=== PATIENT | female | born 1965 | race African-American/Black ===

== ENCOUNTER 2021-02-18 13:09 | Inpatient (IN) | payer OTHER ==
[~2021-02-18] VITALS: Ht 170.2 cm; Wt 108.2 kg
[2021-02-18] MEDS ORDERED: FAMOTIDINE 20 MG/2 ML VIAL IV STA (13:44)
[2021-02-18] MEDS ORDERED: ONDANSETRON HCL INJ 2MG/ML 2ML 2 MG/ML VIAL IV STA ×2 (13:44→15:34)
[2021-02-18] MEDS ORDERED: SODIUM CHLORIDE 0.9% 1000ML 1,000 ML IV SCH ×2 (13:45→17:00)
[2021-02-18] MEDS ORDERED: KETOROLAC TROMETHAMINE 30 MG/ML VIAL IV STA (13:56)
[2021-02-18] MEDS ORDERED: SODIUM CHLORIDE 0.9% 50ML 50 ML ONE (14:04)
[2021-02-18] MEDS ORDERED: IOPAMIDOL 370 MG/ML 200 ML INFUS..BTL INJ ONE (14:05)
[2021-02-18] MEDS ORDERED: FAMOTIDINE 20 MG/2 ML VIAL IV ONE (14:06)
[2021-02-18] MEDS ORDERED: ONDANSETRON HCL INJ 2MG/ML 2ML 2 MG/ML VIAL ONE ×2 (14:06→15:46)
[2021-02-18] MEDS ORDERED: KETOROLAC TROMETHAMINE 30 MG/ML VIAL ONE (14:06)
[2021-02-18] MEDS ORDERED: SODIUM CHLORIDE 0.9% 1000ML 1,000 ML ONE (14:06)
[2021-02-18] MEDS ORDERED: ACETAMINOPHEN 325 MG TAB PO ONE (14:15)
[2021-02-18] MEDS ORDERED: ACETAMINOPHEN 325 MG TAB ONE (14:27)
[2021-02-18] MEDS ORDERED: MORPHINE SULFATE INJ 4 MG/ML INJ 1ML IV STA (15:34)
[2021-02-18] MEDS ORDERED: MORPHINE SULFATE INJ 4 MG/ML INJ 1ML ONE (15:47)
[2021-02-18] MEDS: SODIUM CHLORIDE 0.9% 1000ML 1,000 ML IV SCH ×2 (16:45→21:10)
[2021-02-18] MEDS ORDERED: DEXTROSE 50% SYRINGE 50 ML IV PRN (16:45)
[2021-02-18] MEDS ORDERED: PROMETHAZINE HCL (IM) 25 MG/ML VIAL IM PRN (16:45)
[2021-02-18 18:19] LABS: CREATINE KINASE MB 0.9 ng/mL (0-5.0)
[2021-02-18 18:24] VITALS: BP 114/66
[2021-02-18] MEDS: HYDROMORPHONE 1MG/1ML INJ IV PRN (18:58)
[2021-02-18 20:00] VITALS: BP 114/66
[2021-02-18 21:00] VITALS: BP 114/66
[2021-02-18] MEDS ORDERED: JANUMET 50-1,01 EACH PO (22:29)
[2021-02-18] MEDS ORDERED: AMLODIPINE BESYL5 MG PO (22:29)
[2021-02-18] MEDS ORDERED: CRESTOR10 MG PO (22:29)
[2021-02-18] MEDS ORDERED: HYDROCHLOROTHIA25 MG PO (22:29)
[2021-02-18] MEDS ORDERED: GLIMEPIRIDE2 MG PO (22:29)
[2021-02-18] MEDS ORDERED: COREG12.5 MG PO (22:29)
[2021-02-18] MEDS ORDERED: ALEVE220 M1 PO (22:29)
[2021-02-18] MEDS ORDERED: BENICAR20 MG PO (22:29)
[2021-02-18] MEDS ORDERED: DICLOFENAC SODI75 MG PO (22:29)
[2021-02-18] MEDS ORDERED: ZOFRAN4 MG PO (22:29)
[2021-02-19] VITALS (8 sets, daily range): BP systolic 107–135; BP diastolic 51–73
[2021-02-19 07:21] LABS: BASOPHILS % 0.2 % (0.0-1.0); EOSINOPHILS % 0.1 % (0.0-6.0); HEMATOCRIT 27.9 % (34.2-44.1); HEMOGLOBIN 8.5 g/dL (12.0-16.0); LYMPHOCYTES # (AUTO) 1.3 (1.0-3.2); LYMPHOCYTES % 9.3 % (18.0-39.1); MEAN CORPUSCULAR HEMOGLOBIN 28.1 pg (28-32); MEAN CORPUSCULAR HGB CONC 30.5 g/dL (31-35); MEAN CORPUSCULAR VOLUME 92.4 fL (81-99); MONOCYTES # (AUTO) 1.1 (0.2-0.8); MONOCYTES % 8.2 % (4.4-11.3); NEUTROPHILS # (AUTO) 11.1 (2.1-6.9); NEUTROPHILS % 81.5 % (38.7-80.0); PLATELET COUNT 182 x10e3/uL (140-360); RED BLOOD COUNT 3.02 x10e6/uL (3.6-5.1); RED CELL DISTRIBUTION WIDTH 13.7 % (11.7-14.4)
[2021-02-19 07:24] LABS: ANION GAP 20.4 mmol/L (8-16); CALCIUM 8.4 mg/dL (8.4-10.2); CREATININE, SERUM 2.26 mg/dL (0.57-1.11); POTASSIUM 4.4 mmol/L (3.5-5.1)
[2021-02-19] MEDS: HYDROMORPHONE 1MG/1ML INJ IV PRN ×3 (07:50→16:14)
[2021-02-19] MEDS ORDERED: FAMOTIDINE 20 MG/2 ML VIAL IV SCH (09:00)
[2021-02-19] MEDS ORDERED: ENOXAPARIN SOD INJ 40 MG/0.4 ML SYR SC SCH (09:00)
[2021-02-19 10:31] LABS: BAND NEUTROPHILS % (MANUAL) 6 %; LYMPHOCYTES % (MANUAL) 12 % (19-48); MONOCYTES % (MANUAL) 6 % (3.4-9.0); NEUTROPHILS % (MANUAL) 76 % (40-74)
[2021-02-19 10:32] LABS: PLATELET ESTIMATE ADEQUATE; PLATELET MORPHOLOGY COMMENT NORMAL; RBC MORPHOLOGY COMMENT NORMAL
[2021-02-19] MEDS: SODIUM CHLORIDE 0.9% 1000ML 1,000 ML IV SCH (12:08)
[2021-02-19] MEDS ORDERED: DEXTROSE 50% SYRINGE 50 ML IV PRN (12:15)
[2021-02-19 12:26] LABS: % IRON SATURATION 9 % (15-50); IRON 23 ug/dL (50-170); TOTAL IRON BINDING CAPACITY 253 ug/dL (261-478); TRANSFERRIN 181 mg/dL (180-382)
[2021-02-19] MEDS ORDERED: PNEUMOCOCCAL VACCINE POLYVALENT 23 MCG/0.5 ML VIAL IM SCH (14:00)
[2021-02-19] MEDS: INSULIN LISPRO 100 UNIT/1 ML 3ML VIAL SQ SCH ×2 (16:14→21:00)
[2021-02-19] MEDS: LACTATED RINGER'S 1,000 ML INJ SCH (16:14)
[2021-02-19 16:24] LABS: CHOL/HDL RATIO 3.1 (3.0-3.6)
[2021-02-19 17:36] LABS: CLARITY,URINE SL CLOUDY (CLEAR); COLOR,URINE BROWN (YELLOW); KETONES,URINE NEGATIVE (NEGATIVE); LEUKOCYTE ESTERASE ,URINE TRACE (NEGATIVE); NITRITE,URINE NEGATIVE (NEGATIVE); PROTEIN,URINE DIPSTICK 2+ (NEGATIVE); URINE UROBILINOGEN 2 mg/dL (0.2 - 1)
[2021-02-19 17:50] LABS: AMORPHOUS SEDIMENT,URINE MANY (FEW); BACTERIA,URINE MANY /HPF
[2021-02-19 17:53] LABS: CREATININE,URINE RANDOM 99.45 mg/dL (47-110)
[2021-02-20] VITALS (8 sets, daily range): BP systolic 122–152; BP diastolic 69–81
[2021-02-20] MEDS: ONDANSETRON HCL INJ 2MG/ML 2ML 2 MG/ML VIAL IV PRN ×2 (01:02→23:12)
[2021-02-20] MEDS: HYDROMORPHONE 1MG/1ML INJ IV PRN ×5 (01:07→23:12)
[2021-02-20] MEDS: ACETAMINOPHEN 1000 MG/100 ML IV PRN ×2 (02:19→23:12)
[2021-02-20] MEDS: LACTATED RINGER'S 1,000 ML INJ SCH ×2 (02:26→09:34)
[2021-02-20 05:55] LABS: BASOPHILS % 0.3 % (0.0-1.0); EOSINOPHILS % 0.4 % (0.0-6.0); HEMATOCRIT 29.4 % (34.2-44.1); LYMPHOCYTES # (AUTO) 1.4 (1.0-3.2); LYMPHOCYTES % 13.1 % (18.0-39.1); MEAN CORPUSCULAR HEMOGLOBIN 28.8 pg (28-32); MEAN CORPUSCULAR HGB CONC 30.6 g/dL (31-35); MEAN CORPUSCULAR VOLUME 94.2 fL (81-99); MONOCYTES # (AUTO) 1.1 (0.2-0.8); MONOCYTES % 9.9 % (4.4-11.3); NEUTROPHILS # (AUTO) 8.3 (2.1-6.9); NEUTROPHILS % 75.1 % (38.7-80.0); PLATELET COUNT 186 x10e3/uL (140-360); RED BLOOD COUNT 3.12 x10e6/uL (3.6-5.1); RED CELL DISTRIBUTION WIDTH 13.8 % (11.7-14.4)
[2021-02-20 06:27] LABS: ANION GAP 18.3 mmol/L (8-16); BILIRUBIN,DIRECT 1.1 mg/dL (0.0-0.5); CALCIUM 8.7 mg/dL (8.4-10.2); CREATININE, SERUM 1.81 mg/dL (0.57-1.11); POTASSIUM 4.3 mmol/L (3.5-5.1)
[2021-02-20] MEDS ORDERED: ENOXAPARIN SOD INJ 40 MG/0.4 ML SYR SC SCH (09:00)
[2021-02-20] MEDS: IRON SUCROSE 100 MG in SODIUM CHLORIDE 0.9% 100 ML 100 ML IV SCH (09:00)
[2021-02-20] MEDS: ENOXAPARIN 30 MG/0.3 ML SYR SC SCH (09:35)
[2021-02-20] MEDS: FAMOTIDINE 20 MG/2 ML VIAL IV SCH ×2 (09:35→10:42)
[2021-02-20] MEDS: INSULIN LISPRO 100 UNIT/1 ML 3ML VIAL SQ SCH ×4 (10:43→20:53)
[2021-02-20] MEDS: SODIUM CHLORIDE 0.45% 1,000 ML IV SCH ×2 (16:46→20:15)
[2021-02-21] VITALS (8 sets, daily range): BP systolic 128–161; BP diastolic 64–98
[2021-02-21] MEDS: SODIUM CHLORIDE 0.45% 1,000 ML IV SCH ×3 (05:14→19:49)
[2021-02-21 05:31] LABS: BASOPHILS % 0.2 % (0.0-1.0); EOSINOPHILS % 0.1 % (0.0-6.0); HEMOGLOBIN 9.5 g/dL (12.0-16.0); LYMPHOCYTES # (AUTO) 1.5 (1.0-3.2); LYMPHOCYTES % 13.4 % (18.0-39.1); MEAN CORPUSCULAR HEMOGLOBIN 28.4 pg (28-32); MEAN CORPUSCULAR HGB CONC 29.7 g/dL (31-35); MEAN CORPUSCULAR VOLUME 95.5 fL (81-99); MONOCYTES # (AUTO) 1.3 (0.2-0.8); MONOCYTES % 11.1 % (4.4-11.3); NEUTROPHILS # (AUTO) 8.3 (2.1-6.9); NEUTROPHILS % 73.7 % (38.7-80.0); PLATELET COUNT 188 x10e3/uL (140-360); RED BLOOD COUNT 3.35 x10e6/uL (3.6-5.1); RED CELL DISTRIBUTION WIDTH 13.9 % (11.7-14.4)
[2021-02-21 06:00] LABS: ALBUMIN 3.2 g/dL (3.5-5.0); BILIRUBIN,DIRECT 1.4 mg/dL (0.0-0.5)
[2021-02-21 06:04] LABS: ANION GAP 23.2 mmol/L (8-16); CALCIUM 9.4 mg/dL (8.4-10.2); CREATININE, SERUM 1.54 mg/dL (0.57-1.11); POTASSIUM 4.2 mmol/L (3.5-5.1)
[2021-02-21] MEDS: ENOXAPARIN 30 MG/0.3 ML SYR SC SCH (10:11)
[2021-02-21] MEDS: IRON SUCROSE 100 MG in SODIUM CHLORIDE 0.9% 100 ML 100 ML IV SCH (10:12)
[2021-02-21] MEDS: FAMOTIDINE 20 MG/2 ML VIAL IV SCH (10:12)
[2021-02-21] MEDS: HYDROMORPHONE 1MG/1ML INJ IV PRN ×3 (10:15→19:56)
[2021-02-21] MEDS: INSULIN LISPRO 100 UNIT/1 ML 3ML VIAL SQ SCH ×4 (10:15→20:47)
[2021-02-22] VITALS (8 sets, daily range): BP systolic 132–166; BP diastolic 72–88
[2021-02-22] MEDS: HYDROMORPHONE 1MG/1ML INJ IV PRN ×4 (00:16→23:04)
[2021-02-22] MEDS: SODIUM CHLORIDE 0.45% 1,000 ML IV SCH ×3 (01:13→23:03)
[2021-02-22 05:09] LABS: BASOPHILS % 0.3 % (0.0-1.0); EOSINOPHILS # (AUTO) 0.1 (0.0-0.4); EOSINOPHILS % 1.1 % (0.0-6.0); HEMATOCRIT 28.3 % (34.2-44.1); HEMOGLOBIN 8.7 g/dL (12.0-16.0); LYMPHOCYTES # (AUTO) 1.9 (1.0-3.2); LYMPHOCYTES % 18.3 % (18.0-39.1); MEAN CORPUSCULAR HEMOGLOBIN 28.5 pg (28-32); MEAN CORPUSCULAR HGB CONC 30.7 g/dL (31-35); MEAN CORPUSCULAR VOLUME 92.8 fL (81-99); MONOCYTES # (AUTO) 1.3 (0.2-0.8); MONOCYTES % 12.2 % (4.4-11.3); NEUTROPHILS # (AUTO) 6.9 (2.1-6.9); NEUTROPHILS % 67.4 % (38.7-80.0); PLATELET COUNT 200 x10e3/uL (140-360); RED BLOOD COUNT 3.05 x10e6/uL (3.6-5.1); RED CELL DISTRIBUTION WIDTH 14.2 % (11.7-14.4)
[2021-02-22 05:48] LABS: ALBUMIN 2.9 g/dL (3.5-5.0); ANION GAP 14.7 mmol/L (8-16); BILIRUBIN,DIRECT 2.1 mg/dL (0.0-0.5); CREATININE, SERUM 1.32 mg/dL (0.57-1.11); POTASSIUM 3.7 mmol/L (3.5-5.1)
[2021-02-22] MEDS: ENOXAPARIN 30 MG/0.3 ML SYR SC SCH (09:15)
[2021-02-22] MEDS: IRON SUCROSE 100 MG in SODIUM CHLORIDE 0.9% 100 ML 100 ML IV SCH (09:23)
[2021-02-22] MEDS: INSULIN LISPRO 100 UNIT/1 ML 3ML VIAL SQ SCH ×4 (09:30→20:52)
[2021-02-22] MEDS: ONDANSETRON HCL INJ 2MG/ML 2ML 2 MG/ML VIAL IV PRN (23:04)
[2021-02-23] VITALS (8 sets, daily range): BP systolic 143–182; BP diastolic 77–95
[2021-02-23] MEDS: ONDANSETRON HCL INJ 2MG/ML 2ML 2 MG/ML VIAL IV PRN (05:32)
[2021-02-23] MEDS: HYDROMORPHONE 1MG/1ML INJ IV PRN (05:32)
[2021-02-23 05:46] LABS: ALBUMIN 2.8 g/dL (3.5-5.0); ALBUMIN/GLOBULIN RATIO 0.7 (0.8-2.0); ANION GAP 15.5 mmol/L (8-16); CALCIUM 8.9 mg/dL (8.4-10.2); CREATININE, SERUM 1.11 mg/dL (0.57-1.11); POTASSIUM 3.5 mmol/L (3.5-5.1)
[2021-02-23] MEDS: ENOXAPARIN 30 MG/0.3 ML SYR SC SCH (09:00)
[2021-02-23] MEDS: INSULIN LISPRO 100 UNIT/1 ML 3ML VIAL SQ SCH ×5 (09:00→21:00)
[2021-02-23] MEDS: SODIUM CHLORIDE 0.45% 1,000 ML IV SCH ×3 (09:00→22:53)
[2021-02-23] MEDS: HYDROCODONE/APAP 5MG-325MG TAB PO PRN (12:33)
[2021-02-23] MEDS: CARVEDILOL 3.125 MG TAB PO SCH ×2 (13:23→21:12)
[2021-02-24] VITALS (8 sets, daily range): BP systolic 146–174; BP diastolic 67–97
[2021-02-24] MEDS: ONDANSETRON HCL INJ 2MG/ML 2ML 2 MG/ML VIAL IV PRN (00:56)
[2021-02-24] MEDS: HYDROMORPHONE 1MG/1ML INJ IV PRN (00:57)
[2021-02-24 05:22] LABS: BASOPHILS % 0.3 % (0.0-1.0); EOSINOPHILS # (AUTO) 0.1 (0.0-0.4); EOSINOPHILS % 1.8 % (0.0-6.0); HEMATOCRIT 26.9 % (34.2-44.1); HEMOGLOBIN 8.4 g/dL (12.0-16.0); LYMPHOCYTES # (AUTO) 1.8 (1.0-3.2); LYMPHOCYTES % 22.6 % (18.0-39.1); MEAN CORPUSCULAR HEMOGLOBIN 28.6 pg (28-32); MEAN CORPUSCULAR HGB CONC 31.2 g/dL (31-35); MEAN CORPUSCULAR VOLUME 91.5 fL (81-99); MONOCYTES # (AUTO) 0.7 (0.2-0.8); MONOCYTES % 9.1 % (4.4-11.3); NEUTROPHILS % 64.7 % (38.7-80.0); PLATELET COUNT 205 x10e3/uL (140-360); RED BLOOD COUNT 2.94 x10e6/uL (3.6-5.1); RED CELL DISTRIBUTION WIDTH 13.9 % (11.7-14.4)
[2021-02-24] MEDS: PANTOPRAZOLE SOD 40 MG TABEC PO SCH (05:42)
[2021-02-24 05:47] LABS: ANION GAP 15.4 mmol/L (8-16); CALCIUM 8.7 mg/dL (8.4-10.2); CREATININE, SERUM 0.9 mg/dL (0.57-1.11); POTASSIUM 3.4 mmol/L (3.5-5.1)
[2021-02-24] MEDS: HYDROCODONE/APAP 5MG-325MG TAB PO PRN ×3 (05:47→22:33)
[2021-02-24] MEDS: CLONIDINE HCL 0.1 MG TAB PO PRN ×2 (06:27→21:27)
[2021-02-24 06:43] LABS: ALBUMIN 2.6 g/dL (3.5-5.0)
[2021-02-24] MEDS: CARVEDILOL 3.125 MG TAB PO SCH ×2 (08:25→21:27)
[2021-02-24] MEDS: ENOXAPARIN 30 MG/0.3 ML SYR SC SCH (08:25)
[2021-02-24] MEDS: INSULIN LISPRO 100 UNIT/1 ML 3ML VIAL SQ SCH ×5 (08:41→21:00)
[2021-02-24] MEDS ORDERED: POTASSIUM CHLORIDE 20 MEQ TAB CR PO ONE ×2 (09:20→12:30)
[2021-02-24] MEDS ORDERED: GADOBENATE DIMEGLUMINE 1 ML IV ONE (10:15)
[2021-02-24] MEDS ORDERED: SODIUM CHLORIDE 0.9% 50ML 50 ML ONE (10:15)
[2021-02-24] MEDS: SODIUM CHLORIDE 0.45% 1,000 ML IV SCH (15:48)
[2021-02-24] MEDS ORDERED: PIPERACILLIN/TAZOBACTAM 3.375 GM in SODIUM CHLORIDE 0.9% 50ML 50 ML IV SCH (18:00)
[2021-02-24] MEDS: MEROPENEM 500 MG in SODIUM CHLORIDE 0.9% 50ML 50 ML IV SCH ×2 (22:36→23:55)
[2021-02-25] VITALS (7 sets, daily range): BP systolic 158–183; BP diastolic 82–103
[2021-02-25] MEDS: SODIUM CHLORIDE 0.45% 1,000 ML IV SCH ×2 (00:15→05:25)
[2021-02-25] MEDS: MEROPENEM 500 MG in SODIUM CHLORIDE 0.9% 50ML 50 ML IV SCH ×4 (05:11→23:56)
[2021-02-25] MEDS: PANTOPRAZOLE SOD 40 MG TABEC PO SCH (05:11)
[2021-02-25] MEDS: HYDROMORPHONE 1MG/1ML INJ IV PRN ×3 (06:14→23:56)
[2021-02-25] MEDS: ONDANSETRON HCL INJ 2MG/ML 2ML 2 MG/ML VIAL IV PRN ×3 (06:14→23:56)
[2021-02-25 06:23] LABS: BASOPHILS % 0.2 % (0.0-1.0); EOSINOPHILS # (AUTO) 0.2 (0.0-0.4); EOSINOPHILS % 2.4 % (0.0-6.0); HEMATOCRIT 28.9 % (34.2-44.1); LYMPHOCYTES # (AUTO) 2.1 (1.0-3.2); LYMPHOCYTES % 25.5 % (18.0-39.1); MEAN CORPUSCULAR HEMOGLOBIN 28.6 pg (28-32); MEAN CORPUSCULAR HGB CONC 31.1 g/dL (31-35); MEAN CORPUSCULAR VOLUME 91.7 fL (81-99); MONOCYTES # (AUTO) 0.7 (0.2-0.8); NEUTROPHILS # (AUTO) 5.1 (2.1-6.9); NEUTROPHILS % 61.6 % (38.7-80.0); PLATELET COUNT 234 x10e3/uL (140-360); RED BLOOD COUNT 3.15 x10e6/uL (3.6-5.1); RED CELL DISTRIBUTION WIDTH 14.3 % (11.7-14.4)
[2021-02-25 06:56] LABS: PROTHROMBIN TIME 13.4 seconds (11.9-14.5)
[2021-02-25 06:57] LABS: PARTIAL THROMBOPLASTIN TIME 40.6 seconds (23.8-35.5)
[2021-02-25 07:03] LABS: ANION GAP 14.7 mmol/L (8-16); BILIRUBIN,DIRECT 1.3 mg/dL (0.0-0.5); CALCIUM 8.9 mg/dL (8.4-10.2); CREATININE, SERUM 0.94 mg/dL (0.57-1.11); MAGNESIUM 1.7 MG/DL (1.3-2.1); POTASSIUM 3.7 mmol/L (3.5-5.1)
[2021-02-25] MEDS: INSULIN LISPRO 100 UNIT/1 ML 3ML VIAL SQ SCH ×4 (07:30→20:25)
[2021-02-25] MEDS: CARVEDILOL 3.125 MG TAB PO SCH ×2 (10:26→20:26)
[2021-02-25 10:38] LABS: EOSINOPHILS % (MANUAL) 2 % (0-7); LYMPHOCYTES % (MANUAL) 19 % (19-48); METAMYELOCYTES % (MANUAL) 1 % (0-0); MONOCYTES % (MANUAL) 5 % (3.4-9.0); NEUTROPHILS % (MANUAL) 73 % (40-74)
[2021-02-25 10:39] LABS: PLATELET ESTIMATE ADEQUATE; PLATELET MORPHOLOGY COMMENT NORMAL; RBC MORPHOLOGY COMMENT NORMAL
[2021-02-25] MEDS ORDERED: BUPIVACAINE 0.25% 30ML SDV ONE (11:07)
[2021-02-25] MEDS ORDERED: FENTANYL CITRATE/PF 100MCG/2 ML INJ ONE (12:46)
[2021-02-25] MEDS ORDERED: ONDANSETRON HCL INJ 2MG/ML 2ML 2 MG/ML VIAL ONE (12:46)
[2021-02-25] MEDS: SODIUM CHLORIDE 0.9% 1000ML 1,000 ML IV SCH (15:44)
[2021-02-25] MEDS: CLONIDINE HCL 0.1 MG TAB PO PRN (16:05)
[2021-02-25] MEDS: HYDROCODONE/APAP 5MG-325MG TAB PO PRN (20:26)
[2021-02-26] VITALS (8 sets, daily range): BP systolic 143–185; BP diastolic 67–85
[2021-02-26 05:14] LABS: BASOPHILS # (AUTO) 0.1 (0.0-0.1); BASOPHILS % 0.4 % (0.0-1.0); EOSINOPHILS % 0.2 % (0.0-6.0); HEMATOCRIT 26.4 % (34.2-44.1); HEMOGLOBIN 8.3 g/dL (12.0-16.0); LYMPHOCYTES # (AUTO) 2.3 (1.0-3.2); LYMPHOCYTES % 18.4 % (18.0-39.1); MEAN CORPUSCULAR HEMOGLOBIN 28.6 pg (28-32); MEAN CORPUSCULAR HGB CONC 31.4 g/dL (31-35); MONOCYTES % 8.2 % (4.4-11.3); NEUTROPHILS # (AUTO) 8.8 (2.1-6.9); NEUTROPHILS % 71.4 % (38.7-80.0); PLATELET COUNT 272 x10e3/uL (140-360); RED CELL DISTRIBUTION WIDTH 14.5 % (11.7-14.4)
[2021-02-26 05:37] LABS: ALBUMIN 1.7 g/dL (3.5-5.0); ALBUMIN/GLOBULIN RATIO 0.4 (0.8-2.0); ANION GAP 17.9 mmol/L (8-16); CALCIUM 8.4 mg/dL (8.4-10.2); CREATININE, SERUM 1.33 mg/dL (0.57-1.11); POTASSIUM 3.9 mmol/L (3.5-5.1)
[2021-02-26] MEDS: SODIUM CHLORIDE 0.9% 1000ML 1,000 ML IV SCH ×3 (05:37→18:09)
[2021-02-26] MEDS: PANTOPRAZOLE SOD 40 MG TABEC PO SCH (05:37)
[2021-02-26] MEDS: MEROPENEM 500 MG in SODIUM CHLORIDE 0.9% 50ML 50 ML IV SCH ×3 (05:37→18:09)
[2021-02-26] MEDS: HYDROCODONE/APAP 5MG-325MG TAB PO PRN ×3 (05:47→21:46)
[2021-02-26 08:34] LABS: BAND NEUTROPHILS % (MANUAL) 1 %; LYMPHOCYTES % (MANUAL) 11 % (19-48); METAMYELOCYTES % (MANUAL) 1 % (0-0); MONOCYTES % (MANUAL) 4 % (3.4-9.0); NEUTROPHILS % (MANUAL) 83 % (40-74); PLATELET ESTIMATE ADEQUATE; PLATELET MORPHOLOGY COMMENT NORMAL; POLYCHROMASIA FEW; RBC MORPHOLOGY COMMENT NORMAL
[2021-02-26] MEDS: CARVEDILOL 3.125 MG TAB PO SCH ×2 (08:37→21:45)
[2021-02-26] MEDS: INSULIN LISPRO 100 UNIT/1 ML 3ML VIAL SQ SCH ×4 (09:00→21:48)
[2021-02-26 14:13] LABS: CLARITY,URINE CLOUDY (CLEAR); COLOR,URINE YELLOW (YELLOW); KETONES,URINE TRACE (NEGATIVE); LEUKOCYTE ESTERASE ,URINE NEGATIVE (NEGATIVE); NITRITE,URINE NEGATIVE (NEGATIVE); PROTEIN,URINE DIPSTICK 2+ (NEGATIVE); URINE UROBILINOGEN 1 mg/dL (0.2 - 1)
[2021-02-26 14:27] LABS: AMORPHOUS SEDIMENT,URINE MODERATE (FEW); BACTERIA,URINE MODERATE /HPF; EPITHELIAL CELLS,URINE FEW /LPF
[2021-02-27] VITALS (8 sets, daily range): BP systolic 139–184; BP diastolic 77–95
[2021-02-27] MEDS: MEROPENEM 500 MG in SODIUM CHLORIDE 0.9% 50ML 50 ML IV SCH ×5 (00:11→23:19)
[2021-02-27] MEDS: ONDANSETRON HCL INJ 2MG/ML 2ML 2 MG/ML VIAL IV PRN (00:49)
[2021-02-27] MEDS: HYDROMORPHONE 1MG/1ML INJ IV PRN ×2 (00:49→13:46)
[2021-02-27] MEDS: SODIUM CHLORIDE 0.9% 1000ML 1,000 ML IV SCH ×2 (04:07→14:15)
[2021-02-27] MEDS: PANTOPRAZOLE SOD 40 MG TABEC PO SCH (05:20)
[2021-02-27 06:44] LABS: BASOPHILS % 0.2 % (0.0-1.0); EOSINOPHILS # (AUTO) 0.2 (0.0-0.4); EOSINOPHILS % 1.1 % (0.0-6.0); HEMATOCRIT 25.4 % (34.2-44.1); LYMPHOCYTES % 21.7 % (18.0-39.1); MEAN CORPUSCULAR HEMOGLOBIN 29.1 pg (28-32); MEAN CORPUSCULAR HGB CONC 31.5 g/dL (31-35); MEAN CORPUSCULAR VOLUME 92.4 fL (81-99); MONOCYTES # (AUTO) 1.1 (0.2-0.8); MONOCYTES % 8.3 % (4.4-11.3); NEUTROPHILS # (AUTO) 9.2 (2.1-6.9); NEUTROPHILS % 67.3 % (38.7-80.0); PLATELET COUNT 317 x10e3/uL (140-360); RED BLOOD COUNT 2.75 x10e6/uL (3.6-5.1); RED CELL DISTRIBUTION WIDTH 15.1 % (11.7-14.4)
[2021-02-27 07:08] LABS: ALBUMIN 1.8 g/dL (3.5-5.0); ALBUMIN/GLOBULIN RATIO 0.4 (0.8-2.0); ANION GAP 14.7 mmol/L (8-16); CALCIUM 8.1 mg/dL (8.4-10.2); CREATININE, SERUM 1.17 mg/dL (0.57-1.11); POTASSIUM 3.7 mmol/L (3.5-5.1)
[2021-02-27] MEDS: INSULIN LISPRO 100 UNIT/1 ML 3ML VIAL SQ SCH ×4 (08:30→22:13)
[2021-02-27] MEDS: CARVEDILOL 3.125 MG TAB PO SCH ×2 (09:20→22:12)
[2021-02-27] MEDS ORDERED: LACTULOSE SYRUP 20 GM/30 ML UDC PO NR (11:45)
[2021-02-27] MEDS: CLONIDINE HCL 0.1 MG TAB PO PRN ×2 (13:46→18:19)
[2021-02-27] MEDS: DOCUSATE SODIUM 100 MG CAP PO SCH (18:18)
[2021-02-27] MEDS: HYDRALAZINE HCL 25 MG TAB PO SCH (18:18)
[2021-02-27] MEDS: HYDROCODONE/APAP 5MG-325MG TAB PO PRN (23:20)
[2021-02-28] VITALS (7 sets, daily range): BP systolic 146–173; BP diastolic 72–94
[2021-02-28] MEDS: SODIUM CHLORIDE 0.9% 1000ML 1,000 ML IV SCH (00:15)
[2021-02-28] MEDS: HYDROMORPHONE 1MG/1ML INJ IV PRN (03:00)
[2021-02-28] MEDS: ONDANSETRON HCL INJ 2MG/ML 2ML 2 MG/ML VIAL IV PRN (03:00)
[2021-02-28] MEDS: PANTOPRAZOLE SOD 40 MG TABEC PO SCH (05:29)
[2021-02-28] MEDS: MEROPENEM 500 MG in SODIUM CHLORIDE 0.9% 50ML 50 ML IV SCH ×3 (05:29→18:31)
[2021-02-28 06:27] LABS: BASOPHILS % 0.3 % (0.0-1.0); EOSINOPHILS # (AUTO) 0.2 (0.0-0.4); EOSINOPHILS % 1.6 % (0.0-6.0); HEMATOCRIT 24.7 % (34.2-44.1); HEMOGLOBIN 7.7 g/dL (12.0-16.0); LYMPHOCYTES # (AUTO) 2.3 (1.0-3.2); LYMPHOCYTES % 19.8 % (18.0-39.1); MEAN CORPUSCULAR HEMOGLOBIN 28.8 pg (28-32); MEAN CORPUSCULAR HGB CONC 31.2 g/dL (31-35); MEAN CORPUSCULAR VOLUME 92.5 fL (81-99); MONOCYTES # (AUTO) 0.9 (0.2-0.8); MONOCYTES % 7.7 % (4.4-11.3); NEUTROPHILS # (AUTO) 8.2 (2.1-6.9); NEUTROPHILS % 69.5 % (38.7-80.0); PLATELET COUNT 329 x10e3/uL (140-360); RED BLOOD COUNT 2.67 x10e6/uL (3.6-5.1); RED CELL DISTRIBUTION WIDTH 15.1 % (11.7-14.4)
[2021-02-28 07:04] LABS: ALBUMIN 1.8 g/dL (3.5-5.0); ALBUMIN/GLOBULIN RATIO 0.4 (0.8-2.0); ANION GAP 13.5 mmol/L (8-16); CALCIUM 8.2 mg/dL (8.4-10.2); CREATININE, SERUM 0.84 mg/dL (0.57-1.11); POTASSIUM 3.5 mmol/L (3.5-5.1)
[2021-02-28] MEDS: INSULIN LISPRO 100 UNIT/1 ML 3ML VIAL SQ SCH ×4 (07:30→21:00)
[2021-02-28] MEDS: CLONIDINE HCL 0.1 MG TAB PO PRN (11:05)
[2021-02-28] MEDS: CARVEDILOL 3.125 MG TAB PO SCH ×2 (11:05→21:35)
[2021-02-28] MEDS: DOCUSATE SODIUM 100 MG CAP PO SCH ×2 (11:05→17:02)
[2021-02-28] MEDS: HYDRALAZINE HCL 25 MG TAB PO SCH ×2 (11:05→17:03)
[2021-02-28] MEDS: AMLODIPINE BESYLATE 5 MG TAB PO SCH (13:03)
[2021-02-28] MEDS: HYDROCODONE/APAP 5MG-325MG TAB PO PRN (17:15)
[2021-02-28] MEDS ORDERED: MEROPENEM 500 MG VIAL ONE (23:45)
[2021-02-28] MEDS ORDERED: SODIUM CHLORIDE 0.9% 50ML 50 ML ONE (23:46)
[2021-03-01] VITALS: BP 143/67
[2021-03-01] MEDS: MEROPENEM 500 MG in SODIUM CHLORIDE 0.9% 50ML 50 ML IV SCH ×2 (00:15→06:00)
[2021-03-01] MEDS: HYDROCODONE/APAP 5MG-325MG TAB PO PRN ×2 (00:18→09:19)
[2021-03-01 04:00] VITALS: BP 164/82
[2021-03-01 04:44] LABS: BASOPHILS % 0.2 % (0.0-1.0); EOSINOPHILS # (AUTO) 0.2 (0.0-0.4); HEMATOCRIT 25.4 % (34.2-44.1); LYMPHOCYTES # (AUTO) 2.5 (1.0-3.2); LYMPHOCYTES % 22.2 % (18.0-39.1); MEAN CORPUSCULAR HEMOGLOBIN 29.1 pg (28-32); MEAN CORPUSCULAR HGB CONC 31.5 g/dL (31-35); MEAN CORPUSCULAR VOLUME 92.4 fL (81-99); MONOCYTES # (AUTO) 0.8 (0.2-0.8); MONOCYTES % 7.6 % (4.4-11.3); NEUTROPHILS # (AUTO) 7.5 (2.1-6.9); NEUTROPHILS % 67.3 % (38.7-80.0); PLATELET COUNT 310 x10e3/uL (140-360); RED BLOOD COUNT 2.75 x10e6/uL (3.6-5.1); RED CELL DISTRIBUTION WIDTH 15.1 % (11.7-14.4)
[2021-03-01 05:13] LABS: ALBUMIN 1.8 g/dL (3.5-5.0); ALBUMIN/GLOBULIN RATIO 0.4 (0.8-2.0); ANION GAP 14.6 mmol/L (8-16); CALCIUM 8.1 mg/dL (8.4-10.2); CREATININE, SERUM 1.01 mg/dL (0.57-1.11); POTASSIUM 3.6 mmol/L (3.5-5.1)
[2021-03-01] MEDS: INSULIN LISPRO 100 UNIT/1 ML 3ML VIAL SQ SCH (07:30)
[2021-03-01 07:49] VITALS: BP 178/94
[2021-03-01 08:33] VITALS: BP 178/94
[2021-03-01] MEDS: HYDRALAZINE HCL 25 MG TAB PO SCH (09:00)
[2021-03-01] MEDS: DOCUSATE SODIUM 100 MG CAP PO SCH (09:11)
[2021-03-01] MEDS: PANTOPRAZOLE SOD 40 MG TABEC PO SCH (09:11)
[2021-03-01] MEDS: AMLODIPINE BESYLATE 5 MG TAB PO SCH (09:12)
[2021-03-01] MEDS: CARVEDILOL 3.125 MG TAB PO SCH (09:14)
[2021-03-01 11:35] VITALS: BP 178/93
[2021-03-01] MEDS ORDERED: FUROSEMIDE 40 MG TAB PO ONE (12:15)
[2021-03-01] MEDS ORDERED: NON-FORMULARY MEDICATION (Ondansetron Hcl* (Zofran*) 4 MG) PO PRN (12:15)
[2021-03-01] MEDS: CLONIDINE HCL 0.1 MG TAB PO PRN (12:20)
[2021-03-01] MEDS ORDERED: METRONIDAZOLE500 MG PO (12:21)
[2021-03-01] MEDS ORDERED: LEVOFLOXACIN500 MG PO (12:21)
[2021-03-01] MEDS ORDERED: ONDANSETRON HCL 4 MG ORAL DISINTEGRATING TAB PO PRN (12:30)
[2021-03-02] MEDS ORDERED: GLIMEPIRIDE 2 MG TAB PO SCH (09:00)
== END 2021-03-01 13:26 | disposition home or self-care (01) | DRG 417 ==
LOC: FSED 13:33 → ERHOLD 13:58 → MED/SURG2 17:45
PROVIDERS: ADMIT Internal Medicine; ATTEND Internal Medicine
PROC: 0FT44ZZ Resection of Gallbladder, Percutaneous Endoscopic Approach (ICD-10-PCS; principal; 2021-02-25 11:30)
DX: K85.90 Acute pancreatitis without necrosis or infection, unspecified (principal); N17.0 Acute kidney failure with tubular necrosis; N17.9 Acute kidney failure, unspecified; E87.2 Acidosis; K81.0 Acute cholecystitis; N39.0 Urinary tract infection, site not specified; D50.9 Iron deficiency anemia, unspecified; E11.9 Type 2 diabetes mellitus without complications; I10 Essential (primary) hypertension; N28.1 Cyst of kidney, acquired; Z20.822 Contact with and (suspected) exposure to COVID-19; N14.1 Nephropathy induced by other drugs, medicaments and biological substances; T50.8X5A Adverse effect of diagnostic agents, initial encounter; K76.89 Other specified diseases of liver; Z79.4 Long term (current) use of insulin
CPT/HCPCS: 36415; 71046; 74177; 74183; 76705; 76770; 80048; 80053; 80061; 80076; 81001; 81003; 82550; 82553; 82570; 82948; 83540; 83690; 83735; 84300; 84466; 84484; 85025; 85610; 85730; 87086; 88304; 90732; 93005; 99284; J1170; J1650; J1756; J1885; J2185; J2270; J2405; J3010; J7030; J7121; Q9967; U0002